=== PATIENT | female | born 1970 | race Two or more races ===

== ENCOUNTER 2023-01-15 10:19 | Outpatient (OUT) | payer OTHER, SELFPAY ==
--- NOTE | 2023-01-15 10:34 | XR_ITS ---
The [address] [address] Patient Name: AMBREEN FERNANDEZ MRN: [id number] date: 1970 Sex: F Assigned Patient Location: [facility] Current Patient Location: [facility] Accession/Order Number: [id number] Exam Date: 01/15/2023 10:46 Report Date: 01/15/2023 11:53 At the request of: NON-STAFF PHYSICIAN Procedure: XR chest 2V EXAM: XR chest 2V HISTORY: Screening For Respiratory Tuberculosis Z11.1 COMPARISON: None. TECHNIQUE: PA and lateral views of the chest. FINDINGS: The cardiomediastinal silhouette is normal. No focal consolidation is identified. There is no pneumothorax. No pleural effusion is noted. The osseous structures are intact. XR/XR chest 2V IMPRESSION: No acute cardiopulmonary process. Electronically authenticated by: JORGE LUIS MOURA Date: 01/15/2023 11:53
== END 2023-01-15 10:20 | disposition home or self-care (01) ==
PROVIDERS: PCP Nurse Practitioner Primary Care
DX: Z11.1 Encounter for screening for respiratory tuberculosis (principal)
CPT/HCPCS: 71046

== ENCOUNTER 2024-08-09 05:47 | Emergency (ER) | payer OTHER, SELFPAY ==
[2024-08-09 05:54] VITALS: BP 136/92; PULSE 87; TEMP 36.8; O2SAT 100
--- NOTE | 2024-08-09 06:01 | ECG_ITS ---
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
[2024-08-09 06:13] LABS: Basophils Percent Auto 0.1 % (0.2-2.0); Eosinophils Absolute Auto 0.3 10^3/uL (0.0-0.7); Eosinophils Percent Auto 1.9 % (0.9-7.0); Hematocrit 46.2 % (36.0-48.0); Immature Granulocytes Abs Auto 0.15 10^3/uL (0.00-0.03); Immature Granulocytes Pct Auto 1.1 % (0.0-0.5); Lymphocytes Absolute Auto 0.8 10^3/uL (1.2-3.8); Lymphocytes Percent Auto 5.8 % (20.5-60.0); Mean Corpuscular HGB Conc 34.6 g/dL (29.9-35.2); Mean Corpuscular Hemoglobin 31.2 pg (26.7-34.0); Mean Corpuscular Volume 90.1 fL (81.0-99.0); Mean Platelet Volume 9.1 fL (9.5-13.5); Monocytes Absolute Auto 0.6 10^3/uL (0.3-0.8); Monocytes Percent Auto 4.4 % (1.7-12.0); Neutrophils Absolute Auto 11.7 10^3/uL (1.4-6.5); Neutrophils Percent Auto 86.7 % (43.0-75.0); Platelet Count 349 10^3/uL (150-450); Red Blood Count 5.13 10^6/uL (4.20-5.40); Red Cell Distribution Width 13.2 % (11.0-15.0); White Blood Count 13.5 10^3/uL (4.0-11.0)
--- NOTE | 2024-08-09 06:20 | ED.ABDPAIN1 ---
HPI - Abdominal Pain General Chief Complaint: Abdominal Pain Stated Complaint: ABDOMINAL PAIN Time Seen by Provider: 08/09/24 06:00 Source: patient and family Mode of arrival: walk-in Limitations: no limitations History of Present Illness HPI narrative: This 53-year-old female with a history of hypertension and irritable bowel disease presents for evaluation of nausea vomiting and diarrhea. The patient and her ate pork last night for dinner but before having dinner she started to feel some discomfort in her stomach. She states she only had a little bit of the pork and since that time has been having ongoing nausea vomiting and diarrhea. Her abdomen is distended. She denies any chest pain or shortness of breath. She states she does not normally have any time she vomited and has had multiple episodes of diarrhea. She does admit that over the she was at a get together where somebody else was sick with a stomach virus and was vomiting at that time. During her initial intake she had a syncopal event that the nurses witnessed. She returned to a normal level of consciousness after a brief syncopal episode. Related Data Home Medications ?Medication ?Instructions ?Recorded ?Confirmed amlodipine 5 mg tablet mg 08/09/24 Allergies Allergy/AdvReac Type Severity Reaction Status Date / Time No Known Drug Allergies Allergy Verified 08/09/24 05:57 Review of Systems ROS Status of ROS 10 or more systems reviewed and unremarkable except as noted in history and below Exam Narrative Exam Narrative: Vital signs and Nursing Notes reviewed: Patient is afebrile with a normal pulse, blood pressure is elevated 136/92, she has not hypoxic with pulse ox of 100% on room air General: Awake, alert, oriented, uncomfortable appearing female with active vomiting and dry heaves, no respiratory distress, in between episodes of vomiting she is calm and providing history of recent events HEENT: Normocephalic atraumatic, mucous membranes are moist and pink, eyes are clear, normal conjunctiva, vision is grossly intact, posterior pharynx is normal in appearance. Neck: Supple, no meningeal signs Chest: Lungs are clear to auscultation with good air entry, there is no wheezing rhonchi or rales appreciated no accessory muscle use, patient is speaking in complete sentences-no chest wall tenderness to palpation CVS: Regular rate and rhythm S1-S2, no murmurs rubs or gallops, pulses are brisk and equal bilaterally ABD: Softly distended, diffusely tender with voluntary guarding, bowel sounds are normal, no pulsatile masses appreciated Extremities: Moving all extremities, no lower extremity tenderness or swelling noted, negative Homans' sign, pulses are brisk and equal bilaterally Skin: Normal in appearance, slightly diaphoretic and pale Neuro: No focal deficits Constitutional Vital Signs, click to edit/add: Last Vital Signs Temp 98.3 F 08/09/24 05:54 Pulse 87 08/09/24 05:54 Resp 18 08/09/24 05:54 BP 136/92 H 08/09/24 05:54 Pulse Ox 100 08/09/24 05:54 O2 Del Method Room Air 08/09/24 05:54 Course Vital Signs Vital signs: Vital Signs Temperature 98.3 F 08/09/24 05:54 Pulse Rate 87 08/09/24 05:54 Respiratory Rate 18 08/09/24 05:54 Blood Pressure 136/92 H 08/09/24 05:54 Pulse Oximetry 100 08/09/24 05:54 Oxygen Delivery Method Room Air 08/09/24 05:54 Temperature 98.3 F 08/09/24 05:54 Pulse Rate 87 08/09/24 05:54 Respiratory Rate 18 08/09/24 05:54 Blood Pressure 136/92 H 08/09/24 05:54 Pulse Oximetry 100 08/09/24 05:54 Oxygen Delivery Method Room Air 08/09/24 05:54 MDM - Abdominal Pain MDM Narrative Medical decision making narrative: This 53-year-old female presents for evaluation of nausea vomiting and diarrhea and had an episode of syncope while being triaged. The patient symptoms started last night with some mild nausea before dinner. Her had cooked pork and also states that he does not feel well although he is adamant that he cooked the pork completely. The patient was at an Easter gathering over the weekend where there were other people that were sick with nausea and vomiting. The patient is status post cholecystectomy. She denies any chest pain or shortness of breath. Before passing out she stated that she was feeling [id number] in her hands. I suspect that she had a syncopal event due to hyperventilation and vomiting. Upon walking into the room the patient was having dry heaves and vomiting. She has a normal EKG that is 90 bpm. An IV was placed and she was medicated with IV fluids, Zofran, Pepcid, 1 mg of Dilaudid. Routine labs were ordered and are reviewed. Her white count is 13.5. Electrolytes are normal. Liver function test and lipase are normal. Troponin is normal. Lactic acid is mildly elevated at 2.1. Before receiving IV fluid she had to use the bathroom to have an additional episode of diarrhea. CT scan of the abdomen pelvis and reevaluation is pending at this time. She will be signed out to the incoming physician at 7 AM. Lab Data Labs: Lab Results 08/09/24 Range/Units 06:00 WBC 13.5 H (4.0-11.0) 10^3/uL RBC 5.13 (4.20-5.40) 10^6/uL Hgb 16.0 (12.0-16.0) g/dL Hct 46.2 (36.0-48.0) % MCV 90.1 (81.0-99.0) fL MCH 31.2 (26.7-34.0) pg MCHC 34.6 (29.9-35.2) g/dL RDW 13.2 (11.0-15.0) % Plt Count 349 (150-450) 10^3/uL MPV 9.1 L (9.5-13.5) fL Neut % (Auto) 86.7 H (43.0-75.0) % Lymph % (Auto) 5.8 L (20.5-60.0) % Amelia % (Auto) 4.4 (1.7-12.0) % Eos % (Auto) 1.9 (0.9-7.0) % Baso % (Auto) 0.1 L (0.2-2.0) % Neut # (Auto) 11.7 H (1.4-6.5) 10^3/uL Lymph # (Auto) 0.8 L (1.2-3.8) 10^3/uL Amelia # (Auto) 0.6 (0.3-0.8) 10^3/uL Eos # (Auto) 0.3 (0.0-0.7) 10^3/uL Baso # (Auto) 0.0 (0.0-0.1) 10^3/uL Abs Immat Gran (auto) 0.15 H (0.00-0.03) 10^3/uL Imm/Tot Granulo (auto) 1.1 H (0.0-0.5) % Sodium 140 (136-145) mmol/L Potassium 4.1 (3.5-5.1) mmol/L Chloride 101 (98-107) mmol/L Carbon Dioxide 27.5 (21.0-32.0) mmol/L Anion Gap 15.6 BUN 15.0 (7.0-18.0) mg/dL Creatinine 0.88 (0.55-1.02) mg/dL Est GFR ( Amer) >60 (>=60 mL/min/1.73m^2) Est GFR (Non-Af Amer) >60 (>=60 mL/min/1.73m^2) BUN/Creatinine Ratio 17.0 Glucose 126 H (74-106) mg/dL Lactate 2.1 H* (0.4-2.0) mmol/L Calcium 9.1 (8.5-10.1) mg/dL Total Bilirubin 0.8 (0.2-1.0) mg/dL AST 43 H (15-37) U/L ALT 51 (14-59) U/L Alkaline Phosphatase 97 (46-116) U/L Troponin I High Sens <4.0 L (4.0-51.3) pg/mL Total Protein 7.3 (6.4-8.2) g/dL Albumin 4.1 (3.4-5.0) g/dL Globulin 3.2 g/dL Albumin/Globulin Ratio 1.3 Lipase 31.0 (16.0-77.0) U/L ECG Data Attestation: I personally reviewed and interpreted this ECG as follows: (Sinus rhythm at 90 bpm, normal axis, normal intervals, no acute ST segment elevation or T wave inversion) Discharge Plan Discharge Chief Complaint: Abdominal Pain Clinical Impression: Gastroenteritis, Abdominal pain Patient Disposition: Still a Patient Prescriptions / Home Meds: No Action amlodipine 5 mg tablet Print Language: Brazilian Referrals: Guy Drake NP [Primary Care Provider] - 1 week
[2024-08-09 06:31] LABS: Alanine Aminotransferase 51 U/L (14-59); Albumin Globulin Ratio 1.3; Albumin Level 4.1 g/dL (3.4-5.0); Alkaline Phosphatase 97 U/L (46-116); Anion Gap 15.6; Aspartate Amino Transferase 43 U/L (15-37); Bilirubin Total 0.8 mg/dL (0.2-1.0); Calcium 9.1 mg/dL (8.5-10.1); Carbon Dioxide 27.5 mmol/L (21.0-32.0); Chloride 101 mmol/L (98-107); Estimated GFR (African America >60 (>=60 mL/min/1.73m^2); Estimated GFR (Non-African Ame >60 (>=60 mL/min/1.73m^2); Globulin 3.2 g/dL; Glucose 126 mg/dL (74-106); Potassium 4.1 mmol/L (3.5-5.1); Sodium 140 mmol/L (136-145); Total Protein 7.3 g/dL (6.4-8.2)
[2024-08-09] MEDS: HYDROMORPHONE HCL 1 MG/ML CARTRIDGE IV (06:32)
[2024-08-09] MEDS: ONDANSETRON PF 4 MG/2 ML VIAL IV (06:32)
[2024-08-09 06:33] LABS: Troponin I High Sensitivity <4.0 pg/mL (4.0-51.3)
[2024-08-09] MEDS: FAMOTIDINE/PF 20 MG/2 ML VIAL IV (06:33)
[2024-08-09] MEDS: 0.9 % SODIUM CHLORIDE 1,000 ML 1000 ML IV (06:33)
[2024-08-09 06:34] LABS: Lactate/Lactic Acid 2.1 mmol/L (0.4-2.0)
[2024-08-09 07:09] VITALS: BP 131/72; PULSE 78; O2SAT 99
--- NOTE | 2024-08-09 08:57 | ED.GENADUL1 ---
HPI HPI - General Adult General Chief complaint: Abdominal Pain Stated complaint: ABDOMINAL PAIN Time Seen by Provider: 08/09/24 06:00 Source: patient and family Mode of arrival: walk-in Limitations: no limitations History of Present Illness HPI narrative: 53-year-old female presented to the emergency department and was initially seen by Dr. Hastings. She was signed out to me after discussing the case with her thoroughly. Please see her full history and physical exam. Related Data Home Medications ?Medication ?Instructions ?Recorded ?Confirmed amlodipine 5 mg tablet 5 mg PO DAILY 08/09/24 08/09/24 Previous Rx's ?Medication ?Instructions ?Recorded ondansetron 4 mg disintegrating 4 mg PO Q6H PRN nausea and 08/09/24 tablet vomiting #20 tabs Allergies Allergy/AdvReac Type Severity Reaction Status Date / Time No Known Drug Allergies Allergy Verified 08/09/24 05:57 Opioid HPI Opioid Management Most Recent Opioid Data: Last ED Pain Assessment 08/09/24 07:15 Exam Constitutional Vital Signs, click to edit/add: Last Vital Signs Temp 98.3 F 08/09/24 05:54 Pulse 78 08/09/24 07:09 Resp 20 08/09/24 07:09 BP 131/72 08/09/24 07:09 Pulse Ox 99 08/09/24 07:09 O2 Del Method Room Air 08/09/24 07:09 Course Vital Signs Vital signs: Vital Signs Temperature 98.3 F 08/09/24 05:54 Pulse Rate 87 08/09/24 05:54 Respiratory Rate 18 08/09/24 05:54 Blood Pressure 136/92 H 08/09/24 05:54 Pulse Oximetry 100 08/09/24 05:54 Oxygen Delivery Method Room Air 08/09/24 05:54 Temperature 98.3 F 08/09/24 05:54 Pulse Rate 78 08/09/24 07:09 Respiratory Rate 20 08/09/24 07:09 Blood Pressure 131/72 08/09/24 07:09 Pulse Oximetry 99 08/09/24 07:09 Oxygen Delivery Method Room Air 08/09/24 07:09 Medical Decision Making MDM Narrative Medical decision making narrative: CAT scan is negative and blood work is nonspecific. She is feeling improved and will be discharged home on Zofran. Treatment diagnosis and follow-up were discussed with the patient and her . Differential Diagnosis Differential Diagnosis: Gastroenteritis, bowel obstruction, pancreatitis, diverticulitis Lab Data Lab results reviewed: Yes I reviewed the patient's lab results Labs: Lab Results 08/09/24 Range/Units 06:00 WBC 13.5 H (4.0-11.0) 10^3/uL RBC 5.13 (4.20-5.40) 10^6/uL Hgb 16.0 (12.0-16.0) g/dL Hct 46.2 (36.0-48.0) % MCV 90.1 (81.0-99.0) fL MCH 31.2 (26.7-34.0) pg MCHC 34.6 (29.9-35.2) g/dL RDW 13.2 (11.0-15.0) % Plt Count 349 (150-450) 10^3/uL MPV 9.1 L (9.5-13.5) fL Neut % (Auto) 86.7 H (43.0-75.0) % Lymph % (Auto) 5.8 L (20.5-60.0) % [place] % (Auto) 4.4 (1.7-12.0) % Eos % (Auto) 1.9 (0.9-7.0) % Baso % (Auto) 0.1 L (0.2-2.0) % Neut # (Auto) 11.7 H (1.4-6.5) 10^3/uL Lymph # (Auto) 0.8 L (1.2-3.8) 10^3/uL [place] # (Auto) 0.6 (0.3-0.8) 10^3/uL Eos # (Auto) 0.3 (0.0-0.7) 10^3/uL Baso # (Auto) 0.0 (0.0-0.1) 10^3/uL Abs Immat Gran (auto) 0.15 H (0.00-0.03) 10^3/uL Imm/Tot Granulo (auto) 1.1 H (0.0-0.5) % Sodium 140 (136-145) mmol/L Potassium 4.1 (3.5-5.1) mmol/L Chloride 101 (98-107) mmol/L Carbon Dioxide 27.5 (21.0-32.0) mmol/L Anion Gap 15.6 BUN 15.0 (7.0-18.0) mg/dL Creatinine 0.88 (0.55-1.02) mg/dL Est GFR ( Amer) >60 (>=60 mL/min/1.73m^2) Est GFR (Non-Af Amer) >60 (>=60 mL/min/1.73m^2) BUN/Creatinine Ratio 17.0 Glucose 126 H (74-106) mg/dL Lactate 2.1 H* (0.4-2.0) mmol/L Calcium 9.1 (8.5-10.1) mg/dL Total Bilirubin 0.8 (0.2-1.0) mg/dL AST 43 H (15-37) U/L ALT 51 (14-59) U/L Alkaline Phosphatase 97 (46-116) U/L Troponin I High Sens <4.0 L (4.0-51.3) pg/mL Total Protein 7.3 (6.4-8.2) g/dL Albumin 4.1 (3.4-5.0) g/dL Globulin 3.2 g/dL Albumin/Globulin Ratio 1.3 Lipase 31.0 (16.0-77.0) U/L Imaging Data CT scan - abdomen: Radiologist's impression: No acute process Discharge Plan Discharge Chief Complaint: Abdominal Pain Clinical Impression: Gastroenteritis, Abdominal pain Patient Disposition: Home, Self-Care Time of Disposition Decision: 08:56 Condition: Good Mode of Transportation: Private Vehicle Prescriptions / Home Meds: New ondansetron 4 mg tablet,disintegrating 4 mg PO Q6H PRN (Reason: nausea and vomiting) Qty: 20 0RF No Action amlodipine 5 mg tablet 5 mg PO DAILY Print Language: Trinidadian Instructions: Gastroenteritis (ED), Abdominal Pain (ED) Referrals: Guy Drake NP [Primary Care Provider] - 1 week
== END 2024-08-09 09:07 | disposition home or self-care (01) ==
PROVIDERS: Emergency Medicine; Emergency Provider Emergency Medicine; PCP Nurse Practitioner Primary Care
DX: K52.9 Noninfective gastroenteritis and colitis, unspecified (principal); R10.9 Unspecified abdominal pain; I10 Essential (primary) hypertension; R55 Syncope and collapse; Z90.49 Acquired absence of other specified parts of digestive tract
CPT/HCPCS: 36415; 74177; 80053; 83605; 83690; 84484; 85025; 93005; 96361; 96374; 96375; 99285; J1171; J2405; J3490; Q9967